=== PATIENT | male | born 1975 | race Caucasian/White ===

== ENCOUNTER 2019-01-03 14:53 | Emergency (ER) | payer BC, OTHER ==
[~2019-01-03] VITALS: Ht 177.8 cm; Wt 97.8 kg
[~2019-01-03 14:53] MED LIST: ERGO500017 PO; FOLI-17 PO; MULT1TAB60 PO; OXYC-302 PO; PANT40TA5 PO; THIA100T67 PO; [UNRECOGNIZED DRUG - REMARK] PO
--- NOTE | 2019-01-03 15:38 | NUR ---
PT ARRIVES TO ED TO ETOH WITHDRAW. PT REPORTS HE HAS NOT BEEN SOBER IN 1 YEAR AND WANTS HELP. LAST DRANK TODAY. PT REPORTS NO WITHDRAWAL SYMPTOMS YET. PT A/OX4, +ETOH ODOR. PT CONNECTED TO MONITORS AND CALL LIGHT IN REACH. AWAITING FURTHER ORDERS.
--- NOTE | 2019-01-03 15:40 | NUR ---
DENIES SI/HI
[2019-01-03 15:48] LABS: BASOPHILS # (AUTO) 0.01 x10^3/uL (0-0.1); BASOPHILS % (AUTO) 0 % (0-1); EOSINOPHILS # (AUTO) 0.08 x10^3/uL (0-0.4); EOSINOPHILS % (AUTO) 1 % (1-7); LYMPHOCYTES # (AUTO) 2.51 x10^3/uL (1-3.4); LYMPHOCYTES % (AUTO) 30 % (22-44); MD NO; MEAN CORPUSCULAR HEMOGLOBIN 32.8 pg (27.5-34.5); MEAN CORPUSCULAR HGB CONC 33.7 g/dL (33.2-36.2); MEAN CORPUSCULAR VOLUME 97.5 fL (81-97); MEAN PLATELET VOLUME 7.2 fL (7.4-10.4); MONOCYTES # (AUTO) 0.66 x10^3/uL (0.2-0.8); MONOCYTES % (AUTO) 8 % (2-9); NEUTROPHILS # (AUTO) 5.13 x10^3/uL (1.8-6.8); NEUTROPHILS % (AUTO) 61 % (42-75); PLATELET COUNT 359 x10^3/uL (130-400); RED BLOOD COUNT 4.75 x10^6/uL (4.38-5.82); RED CELL DISTRIBUTION WIDTH 13.7 % (9.4-14.8)
[2019-01-03 16:01] LABS: ALBUMIN 3.9 g/dL (3.4-5.0); ANION GAP 11 mmol/L (5-15); CALCIUM 8.6 mg/dL (8.5-10.1); CHLORIDE 106 mmol/L (98-107)
[2019-01-03 16:04] LABS: ALANINE AMINOTRANSFERASE 58 U/L (12-78); ALKALINE PHOSPHATASE 111 U/L (45-117); BILIRUBIN,TOTAL 0.5 mg/dL (0.2-1.0); CREATININE 0.85 mg/dL (0.7-1.3); TOTAL PROTEIN 7.6 g/dL (6.4-8.2)
[2019-01-03 16:24] VITALS: BP 134/84
[2019-01-03] MEDS ORDERED: PROMETHAZINE 25 MG/ML, 1ML IM ONE (17:30)
[2019-01-03] MEDS ORDERED: PROMETHAZINE 25 MG/ML, 1ML ONE (17:31)
== END 2019-01-03 18:00 | disposition home or self-care (01) ==
LOC: ED 17:35
DX: F10.220 Alcohol dependence with intoxication, uncomplicated (principal); G89.29 Other chronic pain
CPT/HCPCS: 36415; 71045; 80053; 80307; 83690; 85025; 93005; 96372; 99284; J2550

== ENCOUNTER 2019-02-10 21:05 | Emergency (ER) | payer OTHER ==
[~2019-02-10] VITALS: Ht 180.3 cm; Wt 93.5 kg
[2019-02-11 03:21] VITALS: BP 141/74
== END 2019-02-11 03:28 | disposition home or self-care (01) ==
LOC: ED 22:32
DX: F10.120 Alcohol abuse with intoxication, uncomplicated (principal); F17.200 Nicotine dependence, unspecified, uncomplicated; G89.29 Other chronic pain; Z72.9 Problem related to lifestyle, unspecified
CPT/HCPCS: 36415; 80053; 80307; 85025; 99283; Q0162